=== PATIENT | female | born 1950 | race Caucasian/White ===

== ENCOUNTER 2022-06-13 19:02 | Emergency (ER) | payer BC, MEDICARE ==
[~2022-06-13] VITALS: Ht 157.5 cm; Wt 90.7 kg
[~2022-06-13 19:02] MED LIST: ASPIR 8181 MG PO; CELEXA40 MG PO; COREG12.5 MG PO; LISINOPRIL20 MG PO; METFORMIN HCL500 MG PO; METHYLPREDNISONE PO; PANTOPRAZOLE SO40 MG PO; PLAVIX75 MG PO; ZOCOR10 MG PO
[2022-06-13] MEDS ORDERED: KETOROLAC TROMETHAMINE 30 MG/ML VIAL IM STA (19:13)
[2022-06-13] MEDS ORDERED: CYCLOBENZAPRINE HCL 10 MG TAB PO ONE (19:15)
[2022-06-13] MEDS ORDERED: CYCLOBENZAPRINE HCL 10 MG TAB ONE (19:31)
[2022-06-13] MEDS ORDERED: KETOROLAC TROMETHAMINE 30 MG/ML VIAL ONE (19:31)
[2022-06-13] MEDS ORDERED: CYCLOBENZAPRINE10 MG PO (21:15)
[2022-06-13 21:32] VITALS: BP 127/83
== END 2022-06-13 21:33 | disposition home or self-care (01) ==
LOC: ER 19:15
DX: M54.50 Low back pain, unspecified (principal); I10 Essential (primary) hypertension; E11.9 Type 2 diabetes mellitus without complications; E78.5 Hyperlipidemia, unspecified; J44.9 Chronic obstructive pulmonary disease, unspecified
CPT/HCPCS: 72131; 99283; J1885